=== PATIENT | female | born 1975 | race Two or more races ===

== ENCOUNTER 2023-12-17 12:23 | Emergency (ER) | payer OTHER ==
[~2023-12-17] VITALS: Ht 157.5 cm; Wt 43.1 kg
[2023-12-17] MEDS ORDERED: MORPHINE SULFATE 4 MG/ML VIAL IV ONE ×2 (13:30→17:30)
[2023-12-17 15:03] LABS: HEMATOCRIT 34.7 % (36.0-45.00); HEMOGLOBIN 11.9 g/dL (12.0-15.00); MEAN CELL VOLUME 90.5 fL (80.00-100.00); MEAN CORPUSCULAR HEMOGLOBIN 31.1 pg (27.00-32.0); MEAN CORPUSCULAR HGB CONC 34.4 g/dl (32.0-36.0); PLATELET COUNT 267 K/uL (150-450); RED BLOOD COUNT 3.84 M/uL (4.00-6.00); RED CELL DISTRIBUTION WIDTH 13.4 % (11.5-14.5)
[2023-12-17 15:15] LABS: ERYTHROCYTE SEDIMENTATION RATE 17 mm/hr
[2023-12-17 15:21] LABS: CALCIUM 9.6 mg/dL (8.5-10.1); CREATININE SERUM 0.77 mg/dL (0.55-1.02); GFR 80.01; POTASSIUM 4.67 mEq/L (3.5-5.1)
[2023-12-17 15:41] LABS: C-REACTIVE PROTEIN 1.66 MG/DL (0.00-0.29)
== END 2023-12-17 17:39 | disposition home or self-care (01) ==
LOC: ER 12:24
PROVIDERS: General Practice
DX: K04.7 Periapical abscess without sinus (principal); Z88.0 Allergy status to penicillin
CPT/HCPCS: 36415; 70491; Q9965